=== PATIENT | female | born 1945 | race Caucasian/White ===

== ENCOUNTER → 2019-01-08 | Outpatient (CLI) | payer MEDICARE ==
[~2019-01-08] MED LIST: ASPI-1181 PO; ENAL20TA PO; METO50TA18 PO; RANI150C4 PO; ZOLP10TA6 PO; [UNRECOGNIZED DRUG - OTHER] PO
== END | disposition home or self-care (01) ==
LOC: RAH 12:40
PROVIDERS: ATTEND Family Medicine
DX: Z12.31 Encounter for screening mammogram for malignant neoplasm of breast (principal)
CPT/HCPCS: 77067

== ENCOUNTER 2019-02-19 06:54 | Day surgery (SDC) | payer MEDICARE ==
[~2019-02-19] VITALS: Ht 147.3 cm; Wt 81.6 kg
[~2019-02-19 06:54] MED LIST changes: +BIOT5000 PO; +CYAN250014 PO; +LACT1CAP70 PO; +LOPE2 PO; +SODIUM CHLORIDE 0.9% 1000ML 1,000 ML IV ONE
[2019-02-19 08:20] VITALS: BP 128/40
[2019-02-19] MEDS ORDERED: LIDOCAINE HCL 1% 20 ML VIAL ONE (09:59)
[2019-02-19] MEDS ORDERED: PROPOFOL 10 MG/ML 20ML VIAL IV ONE (09:59)
[2019-02-19 10:19] VITALS: BP 152/42
[2019-02-19 10:24] VITALS: BP 143/46
[2019-02-19 10:29] VITALS: BP 142/84
[2019-02-19 10:34] VITALS: BP 161/59
[2019-02-19 10:39] VITALS: BP 148/72
== END 2019-02-19 10:45 | disposition home or self-care (01) ==
LOC: DAH 06:54 → ENDO 06:54
PROVIDERS: ATTEND Internal Medicine
DX: Z09 Encounter for follow-up examination after completed treatment for conditions other than malignant neoplasm (principal); D12.8 Benign neoplasm of rectum; D12.3 Benign neoplasm of transverse colon; K63.5 Polyp of colon; K62.0 Anal polyp; K31.7 Polyp of stomach and duodenum; K29.50 Unspecified chronic gastritis without bleeding; K21.0 Gastro-esophageal reflux disease with esophagitis; K31.89 Other diseases of stomach and duodenum; K64.0 First degree hemorrhoids; I10 Essential (primary) hypertension; E78.2 Mixed hyperlipidemia; I25.10 Atherosclerotic heart disease of native coronary artery without angina pectoris; Z90.49 Acquired absence of other specified parts of digestive tract; Z95.1 Presence of aortocoronary bypass graft; Z80.0 Family history of malignant neoplasm of digestive organs; Z86.010 Personal history of colon polyps
CPT/HCPCS: 43239; 45380; 45385; 88305; 93005; A4606; J2704; J7030

== ENCOUNTER → 2019-04-01 | Outpatient (CLI) | payer MEDICARE ==
[~2019-04-01] MED LIST changes: -SODIUM CHLORIDE 0.9% 1000ML 1,000 ML IV ONE
== END | disposition home or self-care (01) ==
LOC: RAH 12:40
PROVIDERS: ATTEND Family Medicine
DX: N63.11 Unspecified lump in the right breast, upper outer quadrant (principal)
CPT/HCPCS: 76641; 77065

== ENCOUNTER → 2019-05-03 | Outpatient (CLI) | payer MEDICARE ==
[2019-05-03 08:40] LABS: INR 0.94 (0.85-1.15); PARTIAL THROMBOPLASTIN TIME 23.7 SEC (26.3-35.5); PROTHROMBIN TIME 9.9 SEC (9.6-11.6)
--- NOTE | 2019-05-03 11:00 | NUR ---
U/S GD RT BREAST BX PROCEDURE PERFORMED BY DR Jay SHEN. PUNCTURE SITE RT BREAST AT 10 O'CLOCK AND PATIENT TOLERATED PROCEDURE WELL. SPECIMEN X 5 COLLECTED AND SENT TO LAB. TISSUE MARKER DEPLOYED TO BX SITE. END OF PROCEDURE AT 1030. BIOPSY NEEDLE REMOVED AND DRESSING APPLIED. NO BLEEDING NOTED. DISCHARGE INSTRUCTIONS GIVEN TO PATIENT AND VERBALIZED UNDERSTANDING. DISCHARGED VIA AMBULATION AT 1100. AAO X3 WITH NO C/O PAIN.
== END | disposition home or self-care (01) ==
LOC: RAH 07:55
PROVIDERS: ATTEND Surgery
DX: C50.911 Malignant neoplasm of unspecified site of right female breast (principal); Z79.01 Long term (current) use of anticoagulants
CPT/HCPCS: 19083; 36415; 85610; 85730; 88305; A4215 ×3; 76942

== ENCOUNTER 2019-06-03 06:24 | Day surgery (SDC) | payer MEDICARE ==
[2019-06-02 15:18] VITALS: BP 164/56
[2019-06-02 15:19] LABS: BASOPHILS % (AUTO) 0.7 % (0.0-5.0); EOSINOPHILS % (AUTO) 1.1 % (0.0-8.0); HEMATOCRIT 32.1 % (36-48); LYMPHOCYTES % (AUTO) 24.3 % (21.0-51.0); MEAN CORPUSCULAR HEMOGLOBIN 33.1 pg (27.0-33.0); MEAN CORPUSCULAR VOLUME 91.8 fL (79-99); MONOCYTES % (AUTO) 11.5 % (3.0-13.0); NEUTROPHILS % (AUTO) 62.4 % (40.0-77.0); PLATELET COUNT (AUTO) 232 K/uL (130-400); RED BLOOD CELL COUNT(AUTO) 3.49 MIL/uL (4.00-5.50); RED CELL DISTRIBUTION WIDTH 13.1 % (11.0-15.5); WHITE BLOOD COUNT (AUTO) 8.8 K/uL (4.8-10.8)
[2019-06-02 15:30] LABS: CREATININE 1.8 mg/dL (0.5-1.5); POTASSIUM 4.8 mmol/L (3.5-5.1)
--- NOTE | 2019-06-02 15:52 | NUR ---
ekg abnormal ekg reported to Dr. Chavez. no further orders given. Patient saw Dr. Weir on May 18, no cardiac clearance was given to patient, but obtain progress note from visit for Dr. Chavez to review.
[~2019-06-03] VITALS: Ht 149.9 cm; Wt 85.7 kg
[2019-06-03] VITALS (20 sets, daily range): BP systolic 145–176; BP diastolic 40–81
[~2019-06-03 06:24] MED LIST changes: -ASPI-1181 PO; -BIOT5000 PO; -CYAN250014 PO; +EVOL140S SQ; +LACTATED RINGERS 1000ML 1,000 ML IV SCH; +LOPE-198 PO; -LOPE2 PO; +OMEP40CA13 PO; -RANI150C4 PO; +UBID100C10 PO; -ZOLP10TA6 PO; +ZOLP5TAB8 PO; -[UNRECOGNIZED DRUG - OTHER] PO
--- NOTE | 2019-06-03 09:00 | NUR ---
U/S GD RT BREAST WIRE LOCALIZATION PROCEDURE PERFORMED BY DR Luis Felipe IVY. PUNCTURE SITE RT BREAST AND PATIENT TOLERATED PROCEDURE WELL. 7CM WIRE PLACED TO RT BREAST ND DRESSING APPLIED. MAMMOGRAM IMAGES TAKEN FOR WIRE PLACEMENT. DR Cam VAZQUEZ PRESENT AND IMAGES REVIEWED WITH DR Luis Felipe IVY. WIRE LOCATION VERIFIED AND PATIENT TRANSPORTED TO HOLDING AREA AT 0900 WITH COPIES OF MAMMOGRAPHY IMAGES. REPORT GIVEN TO Nilda ENCISO RN.
[2019-06-03] MEDS ORDERED: SUCCINYLCHOLINE 200MG/10ML SYR ONE (09:12)
[2019-06-03] MEDS ORDERED: DEXAMETHASONE SOD PHOSPHATE 10MG/ML 1ML VIAL ONE (09:12)
[2019-06-03] MEDS ORDERED: ONDANSETRON HCL 4 MG/2 ML VIAL ONE (09:12)
[2019-06-03] MEDS ORDERED: MIDAZOLAM HCL 1 MG/ML 2ML VIAL ONE (09:12)
[2019-06-03] MEDS ORDERED: LIDOCAINE PF 2% 5ML ABBOJECT ONE (09:12)
[2019-06-03] MEDS ORDERED: GLYCOPYRROLATE 1 MG/5 ML SYRINGE ONE (09:12)
[2019-06-03] MEDS ORDERED: NEOSTIGMINE 5MG/5ML SYR IV ONE (09:13)
[2019-06-03] MEDS ORDERED: FENTANYL CITRATE PF 50 MCG/1 ML 2ML VIAL ONE (09:13)
[2019-06-03] MEDS ORDERED: ROCURONIUM 10MG/1ML SYR 10 MG/ML ML ONE (09:13)
[2019-06-03] MEDS ORDERED: PROPOFOL 10 MG/ML 20ML VIAL IV ONE (09:13)
--- NOTE | 2019-06-03 11:48 | NUR ---
new received new pt from [facility], s/p partial right mastectomy dressing to site dry and intact,
--- NOTE | 2019-06-03 12:14 | NUR ---
dc dc intructions given to pts caregiver with rx, instructed to f/u with dr rizzo, to keep dressing dry and intact, verbalized understanding.
--- NOTE | 2019-06-03 12:20 | NUR ---
dc pt dc home via [place], no distress noted. accompanied by caregiver Harry, dressing to right breast dry and intact,
== END 2019-06-03 12:20 | disposition home or self-care (01) ==
LOC: DAH 06:24
PROVIDERS: ATTEND Surgery
DX: C50.911 Malignant neoplasm of unspecified site of right female breast (principal); I10 Essential (primary) hypertension; K21.9 Gastro-esophageal reflux disease without esophagitis; I25.10 Atherosclerotic heart disease of native coronary artery without angina pectoris; Z95.5 Presence of coronary angioplasty implant and graft; Z79.899 Other long term (current) drug therapy; Z87.891 Personal history of nicotine dependence; Z82.49 Family history of ischemic heart disease and other diseases of the circulatory system; Z82.5 Family history of asthma and other chronic lower respiratory diseases
CPT/HCPCS: 19301; 36415; 76942; 77065; 80048; 85025; 88307; 93005; A4215; A4221; A4222; A4223; A4450; A4452; A4930 ×2; A6260; J0330; J1100; J2001; J2250; J2405; J2704; J2710; J3010; J3490; J7120; 19285

== ENCOUNTER 2019-11-10 08:23 | Day surgery (SDC) | payer MEDICARE ==
[~2019-11-10] VITALS: Ht 149.9 cm; Wt 76.7 kg
[~2019-11-10 08:23] MED LIST changes: +ASPI-1005 PO; +CLOP75TA14 PO; -ENAL20TA PO; -EVOL140S SQ; +EVOL140S2 SQ; +FAMO20TA8 PO; -LACT1CAP70 PO; +LACT1CAP79 PO; -LACTATED RINGERS 1000ML 1,000 ML IV SCH; +LEVO500T2 PO; +LISI10TA7 PO; -METO50TA18 PO; +METO50TA9 PO; +METR500T PO; -OMEP40CA13 PO; +SODIUM CHLORIDE 0.9% 1000ML 1,000 ML IV ONE
[2019-11-10] MEDS ORDERED: PROPOFOL 10 MG/ML 20ML VIAL IV ONE (10:46)
[2019-11-10 11:07] VITALS: BP 127/62
[2019-11-10 11:12] VITALS: BP 143/68
[2019-11-10 11:17] VITALS: BP 138/62
== END 2019-11-10 11:40 | disposition home or self-care (01) ==
LOC: DAH 08:23 → ENDO 08:23
PROVIDERS: ATTEND Internal Medicine Gastroenterology
DX: C20 Malignant neoplasm of rectum (principal); K62.1 Rectal polyp; A09 Infectious gastroenteritis and colitis, unspecified; K64.0 First degree hemorrhoids; K21.0 Gastro-esophageal reflux disease with esophagitis; D13.1 Benign neoplasm of stomach; I25.10 Atherosclerotic heart disease of native coronary artery without angina pectoris; E78.2 Mixed hyperlipidemia; I10 Essential (primary) hypertension; Z79.82 Long term (current) use of aspirin; Z79.899 Other long term (current) drug therapy; Z86.010 Personal history of colon polyps; K21.9 Gastro-esophageal reflux disease without esophagitis; Z90.49 Acquired absence of other specified parts of digestive tract; Z98.890 Other specified postprocedural states
CPT/HCPCS: 45331; 45341; A4215 ×2; A4221; A4222; A4223; A4606; A4615; A4663; J2704; J7030 ×2

== ENCOUNTER → 2020-01-28 | Outpatient (CLI) | payer MEDICARE ==
[~2020-01-28] MED LIST changes: -SODIUM CHLORIDE 0.9% 1000ML 1,000 ML IV ONE
== END | disposition home or self-care (01) ==
LOC: RAH 08:57
PROVIDERS: ATTEND Internal Medicine Hematology & Oncology
DX: R22.9 Localized swelling, mass and lump, unspecified (principal)
CPT/HCPCS: 76882

== ENCOUNTER → 2020-03-01 | Outpatient (CLI) | payer MEDICARE | END | disposition home or self-care (01) | LOC: RAH 10:31 | PROVIDERS: ATTEND Family Medicine | DX: R19.00 Intra-abdominal and pelvic swelling, mass and lump, unspecified site (principal) | CPT/HCPCS: 76856 ==

== ENCOUNTER → 2020-07-13 | Outpatient (CLI) | payer MEDICARE | END | disposition home or self-care (01) | LOC: RAH 12:41 | PROVIDERS: ATTEND Internal Medicine Hematology & Oncology | DX: C50.411 Malignant neoplasm of upper-outer quadrant of right female breast (principal); R92.2 Inconclusive mammogram; N63.0 Unspecified lump in unspecified breast | CPT/HCPCS: 76641; 77066 ==